=== PATIENT | male | born 1940 | race Caucasian/White ===

== ENCOUNTER 2016-11-28 15:30 | Outpatient (RCR) | payer MEDICARE, OTHER ==
[~2016-11-28 15:30] MED LIST: ASPIR-LOW81 MG PO; ASPIR-LOX325 MG PO; ASPIRIN 81M81 MG/TA2 PO; DICLOFENAC; DICLOFENAC SOD75 MG PO; INDERAL 20MG20 MG PO; LIORESAL20 MG PO; LISINOPRIL40 MG PO; MEVACOR40 MG PO; PERCOCET 325 MG1 TA2 PO; PROPRANOLOL HCL20 MG PO; TYLENOL 500MG500 MG PO; ULTRAM 50MG TAB50 MG PO; ULTRAM50 MG PO; ZESTRIL40 MG PO; blood pressure med
== END 2016-12-07 08:57 | disposition home or self-care (01) ==
LOC: WSPT 15:30
DX: E65 Localized adiposity (principal); M43.10 Spondylolisthesis, site unspecified; M51.26 Other intervertebral disc displacement, lumbar region
CPT/HCPCS: G8978-GP; G8979-GP; G8980-GP

== ENCOUNTER → 2018-02-09 | Outpatient (REF) | LOC: ZLAB.WCH 12:47 | DX: Z01.89 Encounter for other specified special examinations (principal) ==

== ENCOUNTER 2018-02-16 17:21 | Emergency (ER) | payer MEDICARE, OTHER ==
[~2018-02-16] VITALS: Ht 177.8 cm; Wt 137.0 kg
[2018-02-16 17:28] VITALS: BP 192/91; PULSE 90; TEMP 98
[2018-02-16 18:08] LABS: BASO % 0.4 % (0.0-2.0); EOS # 0.2 (0.0-0.7); EOS % 2.9 % (0-4.0); GRAN # 3.1 (1.4-6.5); GRAN % 58.9 % (42.2-75.2); HEMATOCRIT 38.5 % (42.0-52.0); HEMOGLOBIN 13.4 g/dl (13.5-18.0); LYMPH # 1.6 (1.2-3.4); LYMPH % 30.5 % (20.0-51.0); MEAN CELL VOLUME 90 fl (80.0-100.0); MEAN CORPUSCULAR HEMOGLOBIN 31 pg (27.0-31.0); MEAN CORPUSCULAR HGB CONC 35 g/dl (33.0-37.0); MEAN PLATELET VOLUME 10.5 fl (7.4-10.4); MONO # 0.4 (0.1-0.6); MONO % 7.1 % (1.7-9.3); PLATELET COUNT 147 K/mm3 (130-400); RED BLOOD COUNT 4.27 M/mm3 (4.20-5.60); REDCELL DISTRIBUTION WIDTH-CV 13.9 % (11.5-14.5)
[2018-02-16 18:19] LABS: ALANINE AMINOTRANSFERASE 30 U/L (21-72); ALBUMIN 3.9 gm/dL (3.5-5.0); ALKALINE PHOSPHATASE 79 U/L (50-136); ANION GAP 13 mmol/L (7-16); AST,SGOT 20 U/L (15-37); BILIRUBIN,TOTAL 0.5 mg/dL (0.0-1.0); BLOOD UREA NITROGEN 19 mg/dL (9-20); CALCIUM 9.6 mg/dL (8.4-10.2); CARBON DIOXIDE 26 mmol/L (22-30); CHLORIDE 102 mmol/L (98-107); CREATININE, serum 0.86 mg/dL (0.66-1.25); GLUCOSE 174 mg/dL (74-106); SODIUM 141 mmol/L (137-145); TOTAL PROTEIN 7.2 gm/dL (6.4-8.2)
[2018-02-16 18:36] LABS: TROPONIN-I < 0.012 ng/mL (0.000-0.034)
[2018-02-16 18:41] LABS: C-REACTIVE PROTEIN 0.6 mg/dL (0.0-0.9)
== END 2018-02-16 19:57 | disposition home or self-care (01) ==
LOC: COL.ER 17:21
PROVIDERS: Emergency Medicine
DX: R06.02 Shortness of breath (principal); I10 Essential (primary) hypertension; E78.5 Hyperlipidemia, unspecified; E66.9 Obesity, unspecified; Z86.73 Personal history of transient ischemic attack (TIA), and cerebral infarction without residual deficits; Z87.891 Personal history of nicotine dependence; Z79.82 Long term (current) use of aspirin

== ENCOUNTER 2019-01-20 13:50 | Outpatient (RCR) | payer MEDICARE, OTHER | END 2019-02-18 07:58 | disposition home or self-care (01) | LOC: WSPT 13:50 | DX: M17.11 Unilateral primary osteoarthritis, right knee (principal); M19.071 Primary osteoarthritis, right ankle and foot; M43.10 Spondylolisthesis, site unspecified ==

== ENCOUNTER 2019-03-24 11:30 | Outpatient (RCR) | payer MEDICARE, OTHER ==
[2019-05-07] MEDS ORDERED: PRINIVIL20 MG PO (12:42)
[2019-05-07] MEDS ORDERED: GLUCOPHAGE500 MG/TAB PO (12:43)
[2019-05-07] MEDS ORDERED: FLOMAX 0.40.4 MG/CAP PO (12:43)
[2019-05-07] MEDS ORDERED: MEVACOR 20M20 MG/TAB PO (12:43)
[2019-05-07] MEDS ORDERED: ULTRAM ER100 MG PO (12:44)
== END 2019-05-16 17:05 | disposition home or self-care (01) ==
LOC: WSC 11:30
DX: M17.11 Unilateral primary osteoarthritis, right knee (principal); M43.10 Spondylolisthesis, site unspecified; M19.071 Primary osteoarthritis, right ankle and foot

== ENCOUNTER → 2019-03-27 | Outpatient (CLI) | payer MEDICARE | LOC: COL.RAD 09:30 | DX: M16.11 Unilateral primary osteoarthritis, right hip (principal) | CPT/HCPCS: J3301; Q9967 ==

== ENCOUNTER → 2019-04-23 | Outpatient (CLI) | payer MEDICARE | LOC: COL.RAD 08:57 | DX: N30.21 Other chronic cystitis with hematuria (principal) ==

== ENCOUNTER 2019-05-07 12:04 | Day surgery (SDC) | payer MEDICARE ==
[2019-05-07] VITALS (7 sets, daily range): BP systolic 129–135; BP diastolic 69–95; PULSE 50–91; TEMP 98.5
[~2019-05-07] VITALS: Ht 177.8 cm; Wt 119.5 kg
[2019-05-07] MEDS ORDERED: PRINIVIL20 MG PO (12:42)
[2019-05-07] MEDS ORDERED: MEVACOR 20M20 MG/TAB PO (12:43)
[2019-05-07] MEDS ORDERED: GLUCOPHAGE500 MG/TAB PO (12:43)
[2019-05-07] MEDS ORDERED: FLOMAX 0.40.4 MG/CAP PO (12:43)
[2019-05-07] MEDS ORDERED: ULTRAM ER100 MG PO (12:44)
--- NOTE | 2019-05-07 13:20 | NUR ---
The patient did not take his dose of Propranolol last night or this morning. ReaganLUPILLO was notified and an order to give a dose prior to surgery was obtained and medication was given.
--- NOTE | 2019-05-07 17:28 | NUR ---
Contacted cardiopulmonary for EKG
--- NOTE | 2019-05-07 19:44 | NUR ---
Patient up from PACU at 1720. Alert and oriented x 3. Spouse and family at bedside. CBI infusing at a moderate rate to keep urine pink. [place] to dependent drainage. Post op fluids infusing to right hand. Post op VSS. Patient ambulated to restroom, states he feels like he needs to have BM. Shuffling gate, steady. Denies pain or further needs at this time. Ordered Supper. Reported off to hourly shift.
--- NOTE | 2019-05-07 23:55 | NUR ---
PATIENT IN BED ASLEEP. CBI RUNNING AT SLOW TO MODERATE SPEED. URINE RED TINGED AND CLEAR. CBI TUBING HAD DISCONNECTED FROM CATHETER PORT PREVIOUSLY IN THE NIGHT. PATIENT REPOSITIONED AND RECONNECTED. LINENS CHANGED. GOWN CHANGED. PATIENT TAUGHT HOW TO APPLY NYSTATIN/ARISTOCORT CREAM TO GENITALS. NO FURHTER NEEDS AT THIS TIME. WILL CONTINUE TO MONITOR.
[2019-05-08 00:17] VITALS: BP 133/57; PULSE 73; TEMP 98.4
[2019-05-08 04:30] VITALS: BP 101/79; PULSE 63; TEMP 98.3
[2019-05-08 08:34] VITALS: BP 140/51; PULSE 65; TEMP 98.5
--- NOTE | 2019-05-08 08:57 | NUR ---
Assessment completed, alert/oriented, vital signs stable, denies pain, has been by and ordered for prime and pull, dee clapmed/primed bladder with 300cc saline/ catheter removed, instructed on the 6 bottle routine, Hospitalist were consulted and ordered and ECHO/ US here to do this already this morning, patient refusing breakfast, denies other needs at this time
--- NOTE | 2019-05-08 09:32 | NUR ---
NIRALI met with the patient and the patient's son-in-law to discuss discharge plan. The patient lives in [place] with his , Kiran (ph#[phone]). He reports independence with ADLs and has two walkers and a wheelchair. The patient's PCP is Dr. Hector Escobedo and he receives his medications at [facility]. He reports no difficulties obtaining his meds. The patient does not have advanced directives, but he was interested in obtaining a form for DPOA-HC. NIRALI provided. The patient plans to return home with his upon discharge. No additional needs at this time.
--- NOTE | 2019-05-08 10:00 | NUR ---
Clergy exited room and reported patients urinal was full. Entered room and explained to patient I was going to empty urinal. Patient stated "Don't dump that, I have to pee in there six times". Explained to patient that he is to urinate in the urinal six separate times, to urinate, call for urinal to be emptied and then urinate in the urinal when needed again. Patient states "that other nurse didn't tell me that, he told me I have to pee in the same jug six times". 6-bottle routine procedure was again explained to patient, son at bedside stated "you need to get a job, you don't know what your doing". Primary nurse notified.
--- NOTE | 2019-05-08 10:09 | NUR ---
Patient is leaving Against Medical Advice, I have thuroughly explained prime and pull / 6 bottle routine multiple times , patient did not understand this process after multiple times of me explaining it to him, Patient voided on the floor as he stated the urnial we gave him was not big enough for his penis, after getting him a different containe to void in/ he then voided 2-3 times in the container and did not call me as I had instructed him to do after EACH void, patient got angry and was cursing at the myself and the other staff and stated "he was not staying any longer for and that hes been waiting around all morning", I have explained that he also had and ECHO that needed reviewed and he needed clearance from the Hospitalist as well prior to being able to discharge, patient insisted on leaving, I removed his IV and Tele, he signed AMA paper and is leaving with his son-in-law
--- NOTE | 2019-05-08 10:30 | NUR ---
Patient left AMA, Francia GARNER pushed patient to front entrance in wheelchair. Upon reaching front entrance, per Albert report, patient stood up out of wheelchair and urinated in hospital entryway.
--- NOTE | 2019-05-08 11:35 | NUR ---
First visit from the certified legal secretary specialist. No needs right now.
== END 2019-05-08 10:24 | disposition left against medical advice (07) ==
LOC: SURG 12:04 → SDCO 12:04 → SURG 17:24 → SDCO 05-08 10:24
DX: N40.1 Benign prostatic hyperplasia with lower urinary tract symptoms (principal); R39.12 Poor urinary stream; I97.191 Other postprocedural cardiac functional disturbances following other surgery; I67.9 Cerebrovascular disease, unspecified; I10 Essential (primary) hypertension; E11.9 Type 2 diabetes mellitus without complications; Z79.84 Long term (current) use of oral hypoglycemic drugs; Z79.899 Other long term (current) drug therapy
CPT/HCPCS: OP; 99222; J0690; J1100; J1170; J1815; J2270; J2405; J2704; J3010; J7030

== ENCOUNTER → 2019-05-29 | Outpatient (CLI) | payer MEDICARE, OTHER ==
[~2019-05-29] VITALS: Ht 177.8 cm; Wt 115.9 kg
[~2019-05-29] MED LIST changes: +FLOMAX 0.40.4 MG/CAP PO; +GLUCOPHAGE500 MG/TAB PO; +MEVACOR 20M20 MG/TAB PO; +PRINIVIL20 MG PO; +ULTRAM ER100 MG PO
[2019-05-29 12:23] VITALS: BP 110/60; PULSE 71
--- NOTE | 2019-05-29 12:45 | NUR ---
Dr Castillo into talk with pt. No biopsy recommended due to no change in size of nodule in 6 years. Pt dressed and out to car per wheelchair.
== END ==
LOC: COL.RAD 12:00
DX: E04.2 Nontoxic multinodular goiter (principal)

== ENCOUNTER → 2019-06-03 | Outpatient (CLI) | payer MEDICARE, OTHER | LOC: COL.RAD 12:26 | DX: M16.11 Unilateral primary osteoarthritis, right hip (principal) | CPT/HCPCS: J3301; Q9967 ==

== ENCOUNTER → 2019-08-05 | Outpatient (CLI) | payer MEDICARE, OTHER | LOC: COL.RAD 13:11 | DX: M25.551 Pain in right hip (principal) | CPT/HCPCS: J3301; Q9967 ==

== ENCOUNTER → 2019-11-28 | Outpatient (CLI) | payer MEDICARE, OTHER | LOC: COL.RAD 12:36 | DX: M25.551 Pain in right hip (principal); M25.552 Pain in left hip | CPT/HCPCS: J3301; Q9967 ==